=== PATIENT | female | born 1985 | race American Indian/Alaskan Native ===

== ENCOUNTER 2017-03-06 13:59 | Emergency (ER) | payer SELFPAY ==
--- NOTE | 2017-03-06 14:29 | Emergency Department Report ---
Entered by MANJINDER ESCALERA, acting as scribe for KEYLA MCCONNELL NP. Chief Complaint: Shoulder Injury Stated Complaint: HIGH SUGAR LEFT SHOULDER PAIN Time Seen by Provider: 03/06/17 14:21 - HPI History of Present Illness: 32 y/o female presents with left shoulder with pain with movement and hyperglycemia with sugar of 318 that occurred earlier today. Pt notes reports checking her sugar everyday. PT states it always runs high. She denies abd pain or vomiting. Pt denies seeing an education teacher. Medication includes Metformin. - ROS Review of Systems: -abd pain -vomiting +hyperglycemia +left shoulder pain - Exam Vital Signs: Vital Signs 03/06/17 14:22 Temperature 97.9 F Pulse Rate 94 H Respiratory 18 Rate Blood Pressure 144/94 O2 Sat by Pulse 100 Oximetry Physical Exam: PT looks well, non toxic L shoulder with painful rom MSE screening note: Focused history and physical exam performed. Due to findings the following was ordered: labs ED Disposition for MSE Condition: Stable This documentation as recorded by the scribe,MANJINDER ESCALERA,accurately reflects the service I personally performed and the decisions made by ,KEYLA MCCONNELL , SIN.
[2017-03-06 14:36] LABS: Basophils % (Auto) 0.9 % (0.0-1.8); Eosinophils % (Auto) 1.9 % (0.0-4.3); Hemoglobin 13.8 gm/dl (10.1-14.3); Mean Corpuscular HGB Conc 32 % (30-34); Mean Corpuscular Volume 78 fl (79-97); Platelet Count 236 K/mm3 (140-440); Red Blood Count 5.49 M/mm3 (3.65-5.03); Red Cell Distribution Width 13.6 % (13.2-15.2); White Blood Count 10.3 K/mm3 (4.5-11.0)
[2017-03-06 15:06] LABS: Mean Corpuscular Hemoglobin 25 pg (28-32)
[2017-03-06 15:11] LABS: Alanine Aminotransferase 9 units/L (7-56); Albumin 4.1 g/dL (3.9-5); Albumin/Globulin Ratio 1.2 %; Alkaline Phosphatase 78 units/L (35-129); Anion Gap 18 mmol/L; Blood Urea Nitrogen 10 mg/dL (7-17); Calcium 9.1 mg/dL (8.4-10.2); Carbon Dioxide 24 mmol/L (22-30); Chloride 95.8 mmol/L (98-107); Glucose 351 mg/dL (65-100); Potassium 4.4 mmol/L (3.6-5.0); Sodium 133 mmol/L (137-145); Total Protein 7.6 g/dL (6.3-8.2)
[2017-03-06 16:57] LABS: Bacteria,Urine 1+ /HPF (Negative); Bilirubin,Urine NEG (Negative); Blood,Urine SM (Negative); Ketones,Urine NEG (Negative); Leukocyte Esterase,Urine NEG (Negative); Mucus,Urine 1+ /HPF; Nitrite,Urine NEG (Negative); Urobilinogen,Urine < 2.0 mg/dL (<2.0); WBC,Urine < 1.0 /HPF (0.0-6.0)
[2017-03-06] MEDS ORDERED: NACL 0.9% 1000 ML 1,000 ML IV ONE (23:14)
--- NOTE | 2017-03-06 23:15 | Emergency Department Report ---
HPI - General Chief Complaint: Hyperglycemia Time Seen by Provider: 03/06/17 23:01 - HPI HPI: The patient is a 32-year-old female with a history of diabetes, whom presents for evaluation of left shoulder pain and lightheadedness. The patient reports left shoulder pain for the past one day, achy in quality, 8/10 in severity, worse with movement of the left arm at the shoulder joint, improved at rest. She has experienced lightheadedness the past one to 2 days, associated with polyuria and polyphagia. The lightheadedness is worse and with standing and ambulation, improved with lying down and rest, and is severe when present. She denies trauma injury to the left shoulder, fever, headache, neck pain, paresthesias, focal motor weakness, blurry vision, ear pain, tinnitus, chest pain, hemoptysis, dyspnea, abdominal pain, confusion or altered mental status, or recent URI or diarrhea. ED Past Medical Hx - Past Medical History Hx Hypertension: Yes Hx Diabetes: Yes - Surgical History Past Surgical History?: No - Social History Smoking Status: Never Smoker Substance Use Type: None - Medications Home Medications: Home Medications Medication Instructions Recorded Confirmed Last Taken Type Lisinopril [Zestril] 5 mg PO QDAY 03/06/17 03/06/17 02/03/17 00:00 History metFORMIN [Glucophage] 500 mg PO QDAY 03/06/17 03/06/17 03/06/17 08:00 History Ondansetron [Zofran TAB] 4 mg PO Q8HR PRN #15 tablet 03/07/17 Unknown Rx traMADol [Ultram 50 MG tab] 50 mg PO Q6HR PRN #15 tablet 03/07/17 Unknown Rx ED Review of Systems ROS: Stated complaint: HIGH SUGAR LEFT SHOULDER PAIN Other details as noted in HPI Constitutional: reports lightheadedness denies: fever ENT: denies: throat or neck pain Respiratory: denies: cough, shortness of breath Cardiovascular: denies: chest pain Endocrine: denies unexplained weight loss or gain Gastrointestinal: denies: abdominal pain, nausea Genitourinary: denies: dysuria Musculoskeletal: reports shoulder pain denies: leg swelling Skin: denies: rash Neurological: denies: headache Hematological/Lymphatic: denies: easy bleeding or easy bruising Psych: denies sadness or hopelessness Physical Exam - Physical Exam Vital Signs: Vital Signs 03/06/17 03/06/17 14:22 21:14 Temperature 97.9 F 98.3 F Pulse Rate 94 H 94 H Respiratory 18 18 Rate Blood Pressure 144/94 144/97 O2 Sat by Pulse 100 100 Oximetry Physical Exam: General: well-nourished, well-developed, no acute distress Head: Normocephalic, atraumatic Eyes: normal sclera ENT: Mucous membranes are pale and dry Neck: No neck stiffness, no cervical adenopathy Respiratory: Breath sounds equal bilaterally, no wheezing, rales, or rhonchi Cardio: S1 and S2 present, no murmurs, rubs, gallops, capillary refill is delayed Abdomen: Normoactive bowel sounds, soft abdomen, no rigidity, no guarding or rebound tenderness Musc: left shoulder tenderness present, pain elicited with abduction at the shoulder joint, distal sensation and motor function and pulses intact distal left arm Skin: No rash Neuro: no facial drooping, normal speech Psych: Normal affect ED Course Vital Signs 03/06/17 03/06/17 14:22 21:14 Temperature 97.9 F 98.3 F Pulse Rate 94 H 94 H Respiratory 18 18 Rate Blood Pressure 144/94 144/97 O2 Sat by Pulse 100 100 Oximetry ED Medical Decision Making - Lab Data Result diagrams: 03/06/17 14:26 03/06/17 14:26 - Medical Decision Making The patient was seen and examined by myself. The patient is placed on a ekg monitor tech and continuous pulse ox. On initial evaluation, the patient was found to be in no distress. Evaluation orders were placed. The patient given 1 L normal fluid bolus for treatment of dehydration, and IV morphine for pain. Lab results were elevated glucose of 351. The patient is given 5 units IV insulin for treatment of hyperglycemia. The patient was reevaluated and reported that their symptoms were markedly improved. The patient is stable for discharge with outpatient follow-up. The patient is given follow-up and return instructions. The patient expressed understanding and agreed with the plan. The patient is discharged in stable condition. Critical care attestation.: If time is entered above; I have spent that time in minutes in the direct care of this critically ill patient, excluding procedure time. ED Disposition Clinical Impression: Acute hyperglycemia, Dehydration, Acute pain of left shoulder Disposition: - TO HOME OR SELFCARE Is pt being admited?: No Does the pt Need Aspirin: No Condition: Stable Instructions: Musculoskeletal Pain (ED), Dehydration (ED), Shoulder Sprain (ED) , Diabetic Hyperglycemia (ED) Referrals: PRIMARY CARE, [Primary Care Provider] - 3-5 Days Time of Disposition: 23:44
[2017-03-07] MEDS ORDERED: NACL 0.9% 500 ML 500 ML IV ONE (00:05)
[2017-03-07] MEDS ORDERED: MORPHINE IV ONE (00:07)
[2017-03-07] MEDS ORDERED: ZOFRAN IV ONE (00:07)
[2017-03-07 01:27] VITALS: BP 115/78
== END 2017-03-07 01:48 | disposition home or self-care (01) ==
LOC: ED 13:59
DX: E11.65 Type 2 diabetes mellitus with hyperglycemia (principal); E86.0 Dehydration; M25.512 Pain in left shoulder; I10 Essential (primary) hypertension
CPT/HCPCS: 36415; 80053; 81001; 82550; 82805; 82962; 84703; 85025; 96374; 96375; 99284; J2270; J2405; J7040; J1815

== ENCOUNTER 2017-08-09 11:45 | Emergency (ER) | payer OTHER ==
[2017-08-09 13:42] LABS: Basophils # (Auto) 0.1 K/mm3 (0.0-0.1); Basophils % (Auto) 0.9 % (0.0-1.8); Eosinophils # (Auto) 0.2 K/mm3 (0.0-0.4); Eosinophils % (Auto) 1.8 % (0.0-4.3); Hematocrit 39.4 % (30.3-42.9); Hemoglobin 12.7 gm/dl (10.1-14.3); Lymphocytes # (Auto) 2.2 K/mm3 (1.2-5.4); Lymphocytes % (Auto) 24.8 % (13.4-35.0); Mean Corpuscular HGB Conc 32 % (30-34); Mean Corpuscular Volume 78 fl (79-97); Monocytes # (Auto) 0.7 K/mm3 (0.0-0.8); Monocytes % (Auto) 7.8 % (0.0-7.3); Platelet Count 231 K/mm3 (140-440); Red Blood Count 5.03 M/mm3 (3.65-5.03); Red Cell Distribution Width 13.5 % (13.2-15.2)
[2017-08-09 13:53] LABS: Mean Corpuscular Hemoglobin 25 pg (28-32)
[2017-08-09 13:59] LABS: Alanine Aminotransferase 6 units/L (7-56); BUN/Creatinine Ratio 18; Blood Urea Nitrogen 7 mg/dL (7-17); Calcium 9.1 mg/dL (8.4-10.2); Hemolysis Index 4
[2017-08-09 15:01] LABS: Bacteria,Urine 1+ /HPF (Negative); Bilirubin,Urine NEG (Negative); Blood,Urine SM (Negative); Color,Urine Amber (Yellow); Nitrite,Urine NEG (Negative); Protein,Urine <15 mg/dL mg/dL (Negative)
[2017-08-10] MEDS ORDERED: FLEET PR ONE ×2 (02:48→02:59)
[2017-08-10] MEDS ORDERED: NACL 0.9% 1000 ML 2,000 ML IV ONE (02:51)
--- NOTE | 2017-08-10 02:51 | Emergency Department Report ---
ED Abdominal Pain HPI - General Chief Complaint: Pain General Stated Complaint: NO BM X 30 DAYS Time Seen by Provider: 08/10/17 01:14 Source: EMS Mode of arrival: Ambulatory Limitations: No Limitations - History of Present Illness Initial Comments: 32 YO FEMALE SEXUALLY ACTIVE WITH ONLY FEMALES IS HERE WITH C/O PAIN ACROSS HER ABDOMEN GOING AROUND HER ENTIRE BACK. SHE HAS NOT HAD A BOWEL MOVEMENT THAT HAS BEEN NORMAL IN ONE MONTH. SHE HAS A H/O CONSTIPATION. SHE IS NOT SEXUALLY ACTIVE AND DENIES STD IN THE PAST. SHE IS HAVE SMALL HARD BALLS OF STOOL MD Complaint: abdominal pain -: month(s) (1) Location: LLQ, L flank, R flank Radiation: suprapubic Migration to: no migration Severity scale (0 -10): 10 Quality: aching Consistency: constant Improves With: bowel movement Worsens With: movement Associated Symptoms: nausea, vomiting - Related Data Home Medications Medication Instructions Recorded Confirmed Last Taken Lisinopril [Zestril] 5 mg PO QDAY 03/06/17 03/06/17 02/03/17 00:00 metFORMIN [Glucophage] 500 mg PO QDAY 03/06/17 03/06/17 08/10/17 Previous Rx's Medication Instructions Recorded Last Taken Type Ondansetron [Zofran TAB] 4 mg PO Q8HR PRN #15 tablet 03/07/17 Unknown Rx traMADol [Ultram 50 MG tab] 50 mg PO Q6HR PRN #15 tablet 03/07/17 Unknown Rx Polyethylene Glycol 3350 [Miralax 17 gm PO BID #1 box 08/10/17 Unknown Rx 3350] Allergies Allergy/AdvReac Type Severity Reaction Status Date / Time No Known Allergies Allergy Verified 03/06/17 23:22 ED Review of Systems ROS: Stated complaint: NO BM X 30 DAYS Other details as noted in HPI Constitutional: denies: chills, fever Eyes: denies: eye pain, eye discharge, vision change ENT: denies: ear pain, throat pain Respiratory: denies: cough, shortness of breath, wheezing Cardiovascular: denies: chest pain, palpitations Endocrine: no symptoms reported Gastrointestinal: nausea, vomiting, constipation. denies: diarrhea Genitourinary: denies: urgency, dysuria, discharge Musculoskeletal: denies: back pain, joint swelling, arthralgia Skin: denies: rash, lesions Neurological: denies: headache, weakness, paresthesias Psychiatric: denies: anxiety, depression Hematological/Lymphatic: denies: easy bleeding, easy bruising ED Past Medical Hx - Past Medical History Hx Hypertension: Yes Hx Diabetes: Yes (TYPE I) - Social History Smoking Status: Current Every Day Smoker Substance Use Type: None - Medications Home Medications: Home Medications Medication Instructions Recorded Confirmed Last Taken Type Lisinopril [Zestril] 5 mg PO QDAY 03/06/17 03/06/17 02/03/17 00:00 History metFORMIN [Glucophage] 500 mg PO QDAY 03/06/17 03/06/17 08/10/17 History Ondansetron [Zofran TAB] 4 mg PO Q8HR PRN #15 tablet 03/07/17 Unknown Rx traMADol [Ultram 50 MG tab] 50 mg PO Q6HR PRN #15 tablet 03/07/17 Unknown Rx Polyethylene Glycol 3350 [Miralax 17 gm PO BID #1 box 08/10/17 Unknown Rx 3350] ED Physical Exam - General Limitations: No Limitations ED Course Vital Signs 08/09/17 08/09/17 08/10/17 13:01 18:43 00:07 Temperature 98.5 F 98.6 F Pulse Rate 95 H 86 Respiratory 18 16 16 Rate Blood Pressure 140/90 Blood Pressure 132/95 [Right] O2 Sat by Pulse 99 100 Oximetry 08/10/17 08/10/17 00:16 02:53 Temperature 98.4 F 98.7 F Pulse Rate 79 79 Respiratory 19 18 Rate Blood Pressure Blood Pressure 167/100 150/98 [Right] O2 Sat by Pulse 99 100 Oximetry ED Medical Decision Making - Lab Data Result diagrams: 08/09/17 13:16 08/09/17 13:16 - Radiology Data Radiology results: image reviewed (X RAY ACUTE ABDOMINAL SERIES; LARGE AMOUNT OF RETAINED STOOL) Critical care attestation.: If time is entered above; I have spent that time in minutes in the direct care of this critically ill patient, excluding procedure time. ED Disposition Clinical Impression: Constipation Qualifiers: Constipation type: unspecified constipation type Qualified Code(s): K59.00 - Constipation, unspecified Abdominal pain Qualifiers: Abdominal location: lower abdomen, unspecified Qualified Code(s): R10.30 - Lower abdominal pain, unspecified Disposition: -01 TO HOME OR SELFCARE Is pt being admited?: No Does the pt Need Aspirin: No Condition: Stable Instructions: Constipation (ED), High Fiber Diet (ED) Additional Instructions: PLEASE CHANGE YOUR DIET TO INCLUDE MORE FRUITS AND VEGETABLES, AND LOTS OF WATER. PLESE DRINK THE LIQUID YOU WERE GIVEN 8 OZ CLASSES EVERY HALF A DIRECTED ON THE BOTTLE. Prescriptions: Polyethylene Glycol 3350 [Miralax 3350] 17 gm PO BID #1 box Referrals: PRIMARY CARE, [Primary Care Provider] - 3-5 Days [facility] [Outside] - 3-5 Days [facility] [place] [Outside] - 3-5 Days Time of Disposition: 04:36
[2017-08-10 02:54] VITALS: BP 150/98
[2017-08-10 03:14] LABS: Amphetamine Screen,Urine PRESUMPTIVE NEGATIVE; Benzodiazepines Screen,Urine PRESUMPTIVE NEGATIVE; Cocaine Screen,Urine PRESUMPTIVE NEGATIVE; Methadone Screen,Urine PRESUMPTIVE NEGATIVE; Opiate Screen,Urine PRESUMPTIVE NEGATIVE
[2017-08-10 04:05] LABS: Cannabinoid Screen,Urine PRESUMPTIVE POSITIVE
[2017-08-10] MEDS ORDERED: GOLYTELY PO ONE (04:19)
--- NOTE | 2017-08-10 07:55 | XRay Report ---
FINAL REPORT EXAM: XRAY ACUTE ABDOMEN SERIES W/ 1V CHEST HISTORY: abd pain TECHNIQUE: AP of the chest was obtained along with two views of the abdomen and pelvis. FINDINGS: The chest reveals normal heart size and mediastinum. The lungs are clear. The bones and soft tissues are well maintained. The bowel gas pattern is remarkable for a paucity of bowel gas in the central pelvis and mid upper abdomen. A distended bladder cannot be excluded. There is no evidence of bowel obstruction or suspicious calcifications. The bones and soft tissues otherwise appear well maintained. IMPRESSION: No acute process in the chest. Paucity of bowel gas in the pelvis in mid upper abdomen. A distended bladder cannot be excluded. Clinical correlation needed.
== END 2017-08-10 04:55 | disposition home or self-care (01) ==
LOC: ED 11:45
DX: K59.00 Constipation, unspecified (principal); I10 Essential (primary) hypertension; E10.8 Type 1 diabetes mellitus with unspecified complications; F17.200 Nicotine dependence, unspecified, uncomplicated
CPT/HCPCS: 36415; 74022; 80053; 80307; 81001; 82962; 85025; 96360; 99284; J7030